=== PATIENT | male | born 1990 | race Caucasian/White ===

== ENCOUNTER 2016-11-09 10:21 | Emergency (ER) | payer BC, OTHER ==
[2016-11-09 11:57] VITALS: BP 121/67
[2016-11-09] MEDS ORDERED: Ketorolac INJ* 30 MG/ML 1 ML VIAL IM ONE (12:30)
--- NOTE | 2016-11-09 12:30 | UC ---
Complaint Male HPI - HPI Summary HPI Summary: patient was seen in [facility] ER on 11/04 with kidney stone, no imaging was performed per patient request due to finances. presents today with LLQ pain, decreased urine stream and dull left flank pain, denies fever. - History of Current Complaint Stated Complaint: KIDNEY STONE PAIN Time Seen by Provider: 11/09/16 12:10 Hx Obtained From: Patient Onset/Duration: Sudden Onset, Lasting Days Timing: Constant Severity Initially: Severe Severity Currently: Moderate Location: Suprapubic Character: Sharp, Constant Pressure Aggravating Factor(s): Voiding - Allergies/Home Medications Allergies/Adverse Reactions: Allergies Allergy/AdvReac Type Severity Reaction Status Date / Time [facility] Allergy Rash Verified 09/03/14 17:37 PMH/Surg Hx/FS Hx/Imm Hx Previously Healthy: Yes - Surgical History Surgical History: Yes Surgery Procedure, Year, and Place: ACL right knee - Family History Known Family History: Positive: Hypertension - Social History Alcohol Use: None Substance Use Type: None Smoking Status (MU): Former Smoker Type: Cigarettes - Immunization History Most Recent Influenza Vaccination: no Review of Systems Constitutional: Negative Skin: Negative Eyes: Negative ENT: Negative Respiratory: Negative Cardiovascular: Negative Gastrointestinal: Abdominal Pain Genitourinary: Dysuria Motor: Negative Neurovascular: Negative Musculoskeletal: Myalgia Neurological: Negative Psychological: Negative All Other Systems Reviewed And Are Negative: Yes Physical Exam Triage Information Reviewed: Yes Appearance: Well-Appearing, Well-Nourished, Pain Distress Vital Signs: Initial Vital Signs Temp 99.2 F 11/09/16 11:45 Pulse 80 11/09/16 11:45 Resp 18 11/09/16 11:45 BP 121/67 11/09/16 11:45 Pulse Ox 97 11/09/16 11:45 Vital Signs Reviewed: Yes Eye Exam: Normal Eyes: Positive: Conjunctiva Clear ENT Exam: Normal ENT: Positive: Normal ENT inspection, Hearing grossly normal, Pharynx normal, TMs normal Dental Exam: Normal Neck exam: Normal Neck: Positive: Supple, Nontender, No Lymphadenopathy Respiratory Exam: Normal Respiratory: Positive: Chest non-tender, Lungs clear, Normal breath sounds Cardiovascular Exam: Normal Cardiovascular: Positive: RRR, No Murmur, Pulses Normal Abdominal Exam: Normal Abdomen Description: Positive: No Organomegaly, CVA Tenderness (L), Other: - tender in LLQ Bowel Sounds: Positive: Present Musculoskeletal Exam: Normal Musculoskeletal: Positive: Strength Intact, ROM Intact, No Edema Neurological Exam: Normal Neurological: Positive: Alert, Muscle Tone Normal Psychological Exam: Normal Skin Exam: Normal Complaint Male Course/Dx - Course Course Of Treatment: hx obtained, exam performed, meds reviewed, xray obtained, toradol given with mild relief. xray positive for lots of stool no renal calculi visualize. encouraged to keep appointment with urologist, discussed OTC rellief of constipation. - Differential Dx/Diagnosis Differential Diagnosis/HQI/PQRI: Prostatitis, Ureteral Calculi, Urinary Tract Infection Provider Diagnoses: LLQ pain, Left flank Pain, constipation Discharge - Discharge Plan Condition: Stable Disposition: HOME Patient Education Materials: Constipation (ED) Additional Instructions: 1. Increase fluid intake 2. OTC meds include Mag citrate, Fleets enema, prunejoice with butter. 3. keep moving to help promtoe bowel motility. 4. Follow up with your urology appointment sa scheduled.
--- NOTE | 2016-11-09 12:57 | RAD ---
INDICATION: Left lower quadrant pain COMPARISON: None TECHNIQUE: A single view of the abdomen is submitted. FINDINGS: Bones: There are no acute bony findings. Soft tissues: The soft tissues appear normal. The psoas margins are sharp. Bowel gas pattern: There are no obstructive findings. There is moderate stool. Calcifications: There are no abnormal calcifications. Other: None IMPRESSION: NO ACUTE DIAGNOSTIC ABNORMALITIES.
== END 2016-11-09 13:14 | disposition home or self-care (01) ==
LOC: UCCORT 10:21
DX: R10.32 Left lower quadrant pain (principal); K59.00 Constipation, unspecified; R30.0 Dysuria; Z88.1 Allergy status to other antibiotic agents; Z87.891 Personal history of nicotine dependence
CPT/HCPCS: 74000; 81003; 87086; 96372; 99211; G0463; J1885